=== PATIENT | male | born 1995 | race American Indian/Alaskan Native ===

== ENCOUNTER 2017-02-12 00:44 | Emergency (ER) | payer SELFPAY ==
[2017-02-12 01:04] VITALS: BP 112/71
[2017-02-12 01:49] LABS: Anion Gap 16 mmol/L; BUN/Creatinine Ratio 7.77; Blood Urea Nitrogen 7 mg/dL (9-20); Calcium 8.7 mg/dL (8.4-10.2); Carbon Dioxide 26 mmol/L (22-30); Chloride 103.1 mmol/L (98-107); Glucose 87 mg/dL (75-100); Potassium 3.9 mmol/L (3.6-5.0); Sodium 141 mmol/L (137-145)
[2017-02-12 01:57] LABS: Basophils % (Auto) 0.6 % (0.0-1.8); Hemoglobin 13.5 gm/dl (11.8-15.2); Mean Corpuscular HGB Conc 34 % (32-34); Mean Corpuscular Hemoglobin 30 pg (28-32); Mean Corpuscular Volume 90 fl (84-94); Platelet Count 172 K/mm3 (140-440); Red Blood Count 4.47 M/mm3 (3.65-5.03); Red Cell Distribution Width 13.7 % (13.2-15.2); White Blood Count 6.3 K/mm3 (4.5-11.0)
--- NOTE | 2017-02-13 09:26 | ED Elopement Review ---
ED Pt Elopement review - Results review Lab results: Laboratory Tests 02/12/17 02/12/17 01:16 01:16 WBC 6.3 RBC 4.47 Hgb 13.5 Hct 40.0 MCV 90 MCH 30 MCHC 34 RDW 13.7 Plt Count 172 Lymph % (Auto) 41.[address] % (Auto) 5.3 Eos % (Auto) 3.0 Baso % (Auto) 0.6 Lymph # 2.6 [place] # 0.3 Eos # 0.2 Baso # 0.0 Seg Neutrophils % 49.2 Seg Neutrophils # 3.1 Sodium 141 Potassium 3.9 Chloride 103.1 Carbon Dioxide 26 Anion Gap 16 BUN 7 L Creatinine 0.9 Estimated GFR > 60 BUN/Creatinine Ratio 7.77 Glucose 87 Calcium 8.7 - Call Back decision Pt Call Back Decision: Pt to F/U with PMD
== END 2017-02-12 01:17 | disposition left against medical advice (07) ==
LOC: ED 00:44
DX: R07.9 Chest pain, unspecified (principal); Z53.21 Procedure and treatment not carried out due to patient leaving prior to being seen by health care provider
CPT/HCPCS: 36415; 80048; 85025